=== PATIENT | female | born 1980 | race Caucasian/White ===

== ENCOUNTER 2022-10-15 12:36 | Outpatient (CLI) | payer OTHER, SELFPAY ==
--- NOTE | 2022-10-15 13:20 | CRLHL7_ITS ---
For Patients: As a result of the Century Cures Act, medical imaging exams and procedure reports are released immediately into your electronic medical record. You may view this report before your referring provider. If you have questions, please contact your health care provider. BILATERAL SCREENING MAMMOGRAM WITH COMPUTER-AIDED DETECTION TECHNIQUE: CC and MLO views were obtained. These mammographic images have been obtained using full-field digital technique. These mammographic images were interpreted with the benefit of computer-aided detection. COMPARISON FILM: Baseline. FINDINGS: The breasts are heterogeneously dense, which may obscure small masses IMPRESSION: There is no radiographic evidence for malignancy. ASSESSMENT: BI-RADS Category 1: Negative RECOMMENDATION: Routine screening mammogram in 1 year. A lay language report of this examination will be provided to the patient. Murray Stern M.D. Diagnostic Radiologist [email or web address] KATARINA/Dictated by: Murray Stern MD @ 10/16/2022 8:39:00 AM (Electronically Signed)
== END 2022-10-15 12:37 | disposition home or self-care (01) ==
LOC: MAMMO 12:38
PROVIDERS: PCP Family Medicine; Visit Provider Family Medicine
DX: Z12.31 Encounter for screening mammogram for malignant neoplasm of breast (principal); R92.2 Inconclusive mammogram
CPT/HCPCS: 77067

== ENCOUNTER 2023-10-28 08:25 | Outpatient (CLI) | payer OTHER, SELFPAY | END 2023-10-28 08:26 | disposition home or self-care (01) | LOC: NFLDREF 10-30 07:20 | PROVIDERS: PCP Family Medicine; Referring Provider Family Medicine; Visit Provider Family Medicine | DX: I10 Essential (primary) hypertension (principal); D64.9 Anemia, unspecified; Z13.220 Encounter for screening for lipoid disorders; Z13.29 Encounter for screening for other suspected endocrine disorder | CPT/HCPCS: 80053; 80061; 82728; 84439; 84443 ==

== ENCOUNTER 2023-11-05 19:10 | Outpatient (CLI) | payer OTHER, SELFPAY ==
--- NOTE | 2023-11-05 19:20 | CRLHL7_ITS ---
For Patients: As a result of the Century Cures Act, medical imaging exams and procedure reports are released immediately into your electronic medical record. You may view this report before your referring provider. If you have questions, please contact your health care provider. BILATERAL SCREENING MAMMOGRAM WITH COMPUTER-AIDED DETECTION TECHNIQUE: CC and MLO views were obtained. These mammographic images have been obtained using full-field digital technique. These mammographic images were interpreted with the benefit of computer-aided detection. COMPARISON FILM: 10/15/22. FINDINGS: The breasts are heterogeneously dense, which may obscure small masses. IMPRESSION: There is no radiographic evidence for malignancy. ASSESSMENT: BI-RADS Category 1: Negative RECOMMENDATION: Routine screening mammogram in 1 year. A lay language report of this examination will be provided to the patient. MURRAY DURAND M.D. Diagnostic Radiologist [email or web address] HARRISON/radha Transcribed: 11/06/2023, 6:[address]/Dictated by: Murray Durand MD @ 11/06/2023 9:31:00 AM (Electronically Signed)
== END 2023-11-05 19:11 | disposition home or self-care (01) ==
LOC: MAMMO 19:11
PROVIDERS: PCP Family Medicine; Visit Provider Family Medicine
DX: Z12.31 Encounter for screening mammogram for malignant neoplasm of breast (principal); R92.2 Inconclusive mammogram
CPT/HCPCS: 77063; 77067

== ENCOUNTER 2024-01-10 08:14 | Outpatient (CLI) | payer OTHER, SELFPAY | END 2024-01-10 08:15 | disposition home or self-care (01) | LOC: NFLDREF 12:27 | PROVIDERS: PCP Family Medicine; Referring Provider Family Medicine; Visit Provider Family Medicine | DX: R79.89 Other specified abnormal findings of blood chemistry (principal) | CPT/HCPCS: 84443 ==

== ENCOUNTER 2024-04-14 15:42 | Outpatient (CLI) | payer OTHER, SELFPAY | END 2024-04-14 15:43 | disposition home or self-care (01) | LOC: NFLDREF 15:43 | PROVIDERS: PCP Family Medicine; Visit Provider Family Medicine | DX: R10.2 Pelvic and perineal pain (principal); R10.31 Right lower quadrant pain | CPT/HCPCS: 80053 ==

== ENCOUNTER 2024-06-26 15:57 | Outpatient (CLI) | payer OTHER, SELFPAY ==
--- NOTE | 2024-06-26 16:00 | CRLHL7_ITS ---
For Patients: As a result of the Century Cures Act, medical imaging exams and procedure reports are released immediately into your electronic medical record. You may view this report before your referring provider. If you have questions, please contact your health care provider. CLINICAL HISTORY: Pelvic and perineal pain TECHNIQUE: 2D forrest scale ultrasound. In addition color Doppler and spectral Doppler analysis was performed of the pelvis using a transabdominal and transvaginal approach. FINDINGS: Incidental cervical nabothian cyst on the right measures 14 x 11 x 13 millimeters. The uterus measures 8.1 x 3.3 x 4.4 cm. The endometrial lining appears normal and measures 5 mm in thickness. The right ovary measures 2.8 x 2.1 x 2.4 cm in size and the left ovary measures 3.8 x 2.0 x 2.4 cm. The ovaries demonstrate normal arterial and venous blood flow on color Doppler and spectral Doppler analysis. There are no suspicious fluid collections within the cul-de-sac. IMPRESSION: Normal ovaries. No torsion or adnexal mass. No excess pelvic free fluid. No uterine fibroid. Dictated by Murray Stern MD @ 06/27/2024 4:13:32 PM (Electronically Signed)
== END 2024-06-26 15:58 | disposition home or self-care (01) ==
LOC: US 15:59
PROVIDERS: PCP Family Medicine; Visit Provider Family Medicine
DX: R10.2 Pelvic and perineal pain (principal); R10.31 Right lower quadrant pain
CPT/HCPCS: 76830; 76856; 93976

== ENCOUNTER 2024-12-03 07:41 | Outpatient (CLI) | payer BC, SELFPAY | END 2024-12-03 07:42 | disposition home or self-care (01) | LOC: NFLDREF 12-14 14:33 | PROVIDERS: PCP Family Medicine; Referring Provider Family Medicine; Visit Provider Family Medicine | DX: I10 Essential (primary) hypertension (principal); E78.5 Hyperlipidemia, unspecified; E03.9 Hypothyroidism, unspecified | CPT/HCPCS: 80053; 80061; 84443 ==

== ENCOUNTER 2025-02-17 13:42 | Outpatient (CLI) | payer BC, SELFPAY ==
--- NOTE | 2025-02-17 13:40 | CRLHL7_ITS ---
For Patients: As a result of the Century Cures Act, medical imaging exams and procedure reports are released immediately into your electronic medical record. You may view this report before your referring provider. If you have questions, please contact your health care provider. BILATERAL SCREENING MAMMOGRAM WITH COMPUTER-AIDED DETECTION AND TOMOSYNTHESIS TECHNIQUE: CC and MLO views were obtained. These mammographic images have been obtained using full-field digital technique. These mammographic images were interpreted with the benefit of computer-aided detection. Breast Tomosynthesis was used in this interpretation. COMPARISON FILM: 11/05/23, 10/15/22. FINDINGS: The breasts are heterogeneously dense, which may obscure small masses. IMPRESSION: There is no radiographic evidence for malignancy. ASSESSMENT: BI-RADS Category 1: Negative RECOMMENDATION: Routine screening mammogram in 1 year. A lay language report of this examination will be provided to the patient. Murray Stern M.D. Diagnostic Radiologist [email or web address] SP/Dictated by: Murray Stern MD @ 02/23/2025 12:48:00 PM (Electronically Signed)
== END 2025-02-17 13:43 | disposition home or self-care (01) ==
LOC: MAMMO 13:43
PROVIDERS: PCP Family Medicine; Visit Provider Family Medicine
DX: Z12.31 Encounter for screening mammogram for malignant neoplasm of breast (principal); R92.333 Mammographic heterogeneous density, bilateral breasts
CPT/HCPCS: 77063; 77067